=== PATIENT | male | born 1975 | race African-American/Black ===

== ENCOUNTER 2023-09-29 13:58 | Emergency (ER) | payer SELFPAY ==
[~2023-09-29] VITALS: Ht 172.7 cm; Wt 90.0 kg
[2023-09-29] MEDS: SODIUM CHLORIDE 0.9% 250 ML IRRIG SOLUTION BOTTLE IRRIG ONE (15:16)
[2023-09-29] MEDS: PROPARACAINE HCL 0.5% 15 ML OPHTHALMIC SOLUTION OU ONE (15:17)
[2023-09-29] MEDS: FLUORESCEIN SODIUM 1 MG STRIP OU ONE (15:17)
[2023-09-29] MEDS: ACETAMINOPHEN 500 MG TABLET PO ONE (16:09)
[2023-09-29 16:13] VITALS: TEMP 98.1
[2023-09-29 20:17] VITALS: BP 130/77; PULSE 92; RESP 16
== END 2023-09-29 22:33 | disposition short-term general hospital (02) ==
LOC: EMS 13:58
DX: S02.831A Fracture of medial orbital wall, right side, initial encounter for closed fracture (principal); S01.81XA Laceration without foreign body of other part of head, initial encounter; S05.02XA Injury of conjunctiva and corneal abrasion without foreign body, left eye, initial encounter; Y08.89XA Assault by other specified means, initial encounter; Y93.89 Activity, other specified; Y92.89 Other specified places as the place of occurrence of the external cause; Y99.8 Other external cause status
CPT/HCPCS: 12013; 70450; 70480; 99291